=== PATIENT | female | born 1985 | race Two or more races ===

== ENCOUNTER 2021-12-18 14:07 | Emergency (ER) | payer MEDICAID, OTHER ==
[~2021-12-18] VITALS: Ht 157.5 cm; Wt 66.7 kg
[2021-12-18] MEDS ORDERED: CLINDAMYCIN 900MG IV 50 ML IV ONE (16:30)
[2021-12-18] MEDS ORDERED: ONDANSETRON ODT 4 MG TAB PO ONE (16:30)
[2021-12-18] MEDS ORDERED: methylPREDNISolone SOD SUCC 125 MG/2 ML VL IV ONE (16:30)
[2021-12-18] MEDS ORDERED: MORPHINE SULFATE INJECTION 2 MG/ML SYRG IM ONE (16:30)
[2021-12-18] MEDS ORDERED: CEFTRIAXONE SODIUM 2 GM in D5W 5% 50 ML IV ONE (16:30)
[2021-12-18 17:10] LABS: Basophils # (auto) 0 10 ^3/uL (0-0.2); Basophils % (auto) 0.2 % (0.0-2.0); Eosinophils # (auto) 0 10 ^3/uL (0-0.8); Hemoglobin 9.5 g/dL (12.2-16.2); Lymphocytes # (auto) 1.1 10 ^3/uL (0.4-5.4); Lymphocytes % (auto) 12.8 % (10.0-50.0); Mean Corpuscular Hemoglobin 23.5 pg (28.0-32.0); Mean Corpuscular Hgb Conc. 31.7 g/dL (32.0-36.0); Mean Corpuscular Volume 74.1 fL (80.0-100.0); Monocytes # (auto) 0.4 10 ^3/uL (0-1.3); Monocytes % (auto) 4.3 % (0.0-12.0); Neutrophils % (auto) 82.7 % (37.0-80.0); Red Blood Cells 4.05 10^6/uL (4.0-5.20); Red Cell Distribution Width 17.3 % (11.8-14.3); White Blood Cell 8.5 10^3/uL (4.4-10.8)
[2021-12-18 17:28] LABS: Albumin 3.1 g/dL (3.4-5.0); BUN/Creatinine Ratio 17.2; Potassium 3.8 mmol/L (3.5-5.1)
[2021-12-18 17:31] LABS: Bilirubin, Total 0.3 mg/dL (0.2-1.0); Total Protein 8.3 g/dL (6.4-8.2)
[2021-12-18] MEDS ORDERED: CLIN300C8 PO (17:47)
[2021-12-18] MEDS ORDERED: PRED20TA2 PO (17:47)
[2021-12-18 18:07] VITALS: BP 111/70
[2021-12-18] MEDS ORDERED: cefTRIAXone 1GM/50ML D5W 100 ML IV ONE (18:10)
[2021-12-18] MEDS ORDERED: IOHEXOL 300 MG/ML 100ML BOTTLE IJ ONE (18:27)
== END 2021-12-18 19:08 | disposition still patient (30) ==
LOC: ER 14:07
DX: J36 Peritonsillar abscess (principal); J32.9 Chronic sinusitis, unspecified; Z79.2 Long term (current) use of antibiotics; Z79.899 Other long term (current) drug therapy
CPT/HCPCS: 36415; 80053; 83605; 85025; 96365; 96368; 96372; 96375; 99284; J0696; J2270; J2930; J3490; Q0162; Q9967; J7060